=== PATIENT | female | born 1935 | race Caucasian/White ===

== ENCOUNTER 2021-09-11 18:25 | Inpatient (IN) | payer OTHER, MEDICARE ==
[2021-09-11 18:38] VITALS: BMI 21.1
[2021-09-11] MEDS ORDERED: METOCLOPRAMIDE HCL INJECTION 10 MG/2 ML VIAL IVPUSH ONE (18:41)
[2021-09-11] MEDS ORDERED: ACETAMINOPHEN 1000 MG/100 ML BAG IVPB ONE (18:41)
[2021-09-11] MEDS ORDERED: ACETAMINOPHEN INJECTION 100 ML IVPB ONE (18:43)
[2021-09-11 19:00] LABS: BASO % 0.6 % (0-2.0); EOS % 0.8 % (0-4.5); HEMOGLOBIN 13.6 GM/dL (10.7-15.3); LYMPH % 33.7 % (8-40); MCH 30.5 pg (25.7-33.7); MCHC 33.2 g/dl (32.0-36.0); MEAN CELL VOLUME 91.9 fl (80-96); MEAN PLT VOLUME 7.9 fl (7.5-11.1); MONO % 10.5 % (3.8-10.2); NEUT % 54.4 % (42.8-82.8); PLATELET COUNT 281 10^3/uL (134-434); RBC 4.46 M/mm3 (3.60-5.2); RDW 14.6 % (11.6-15.6); WHITE BLOOD COUNT 7.1 K/mm3 (4.0-10.0)
[2021-09-11 19:06] LABS: INR 1.01 (0.83-1.09); PROTHROMBIN TIME (PATIENT) 11.3 SEC (9.7-13.0)
[2021-09-11 19:08] LABS: ACTIVATED PTT 34.9 SECONDS (25.2-36.5)
[2021-09-11 19:18] LABS: CHLORIDE 102 mmol/L (98-107); SODIUM 137 mmol/L (136-145)
[2021-09-11 19:21] LABS: ALBUMIN 3.8 g/dl (3.4-5.0); ANION GAP 10 MMOL/L (8-16); BLOOD UREA NITROGEN 16.8 mg/dL (7-18); CALCIUM 9.1 mg/dL (8.5-10.1); CO2 25 mmol/L (21-32); GLUCOSE,RANDOM 101 mg/dL (74-106)
[2021-09-11 19:24] LABS: CREATININE 0.8 mg/dL (0.55-1.3); SGOT/AST 31 U/L (15-37); SGPT/ALT 27 U/L (13-61)
[2021-09-11 19:26] LABS: BILIRUBIN,TOTAL 0.4 mg/dL (0.2-1); TOT PROT 7.4 g/dl (6.4-8.2)
[2021-09-11 19:27] LABS: ALK PHOS 91 U/L (45-117)
[2021-09-11] MEDS ORDERED: METOCLOPRAMIDE HCL INJECTION 10 MG/2 ML VIAL ONE (20:00)
[2021-09-11 20:56] LABS: URINE APPEARANCE CLEAR; URINE BILIRUBIN NEGATIVE (NEGATIVE); URINE COLOR YELLOW; URINE GLUCOSE (UA) NEGATIVE (NEGATIVE); URINE KETONE NEGATIVE (NEGATIVE); URINE LEUK ESTERASE NEGATIVE (NEGATIVE); URINE NITRITE NEGATIVE (NEGATIVE); URINE PROTEIN NEGATIVE (NEGATIVE); URINE UROBILINOGEN 0.2 mg/dL (0.2-1.0)
[2021-09-11] MEDS ORDERED: SODIUM CHLORIDE 1,000 ML IV SCH (22:15)
[2021-09-12] MEDS: LEVOTHYROXINE NA 50 MCG TABLET (FP) PO SCH (06:00)
[2021-09-12 09:20] LABS: BASO % 0.5 % (0-2.0); EOS % 0.5 % (0-4.5); HEMOGLOBIN 12.3 GM/dL (10.7-15.3); LYMPH % 22.7 % (8-40); MCH 30.8 pg (25.7-33.7); MCHC 33.2 g/dl (32.0-36.0); MEAN CELL VOLUME 92.8 fl (80-96); MEAN PLT VOLUME 8.4 fl (7.5-11.1); NEUT % 66.3 % (42.8-82.8); PLATELET COUNT 277 10^3/uL (134-434); RBC 3.99 M/mm3 (3.60-5.2); RDW 14.4 % (11.6-15.6)
[2021-09-12] MEDS: amLODIPine BESYLATE 10 MG TABLET (FP) PO SCH (09:47)
[2021-09-12] MEDS: METOCLOPRAMIDE HCL INJECTION 10 MG/2 ML VIAL IVPUSH PRN ×2 (09:47→17:25)
[2021-09-12 09:49] LABS: ALBUMIN 3.2 g/dl (3.4-5.0); CALCIUM 8.9 mg/dL (8.5-10.1)
[2021-09-12 09:53] LABS: BLOOD UREA NITROGEN 11.3 mg/dL (7-18)
[2021-09-12 09:54] LABS: MAGNESIUM 2.1 mg/dL (1.8-2.4)
[2021-09-12 09:55] LABS: CREATININE 0.5 mg/dL (0.55-1.3); PHOSPHOROUS 3.1 mg/dL (2.5-4.9)
[2021-09-12 09:57] LABS: BILIRUBIN,TOTAL 0.7 mg/dL (0.2-1)
[2021-09-12 10:02] LABS: TOT PROT 6.3 g/dl (6.4-8.2)
[2021-09-12] MEDS: RAMIPRIL 5 MG CAPSULE PO SCH (10:54)
[2021-09-12] MEDS ORDERED: MECLIZINE HCL 12.5 MG TABLET PO ONE (19:04)
[2021-09-12] MEDS ORDERED: MECLIZINE HCL 25 MG TABLET (FP) PO ONE (19:15)
[2021-09-12] MEDS: ACETAMINOPHEN 325 MG TABLET (FP) PO PRN (20:25)
[2021-09-13] MEDS ORDERED: morphine CARPU-JECT 2 MG/1 ML DISP.SYRIN IVPUSH ONE (02:22)
[2021-09-13] MEDS: LEVOTHYROXINE NA 50 MCG TABLET (FP) PO SCH (06:18)
[2021-09-13] MEDS: ACETAMINOPHEN 325 MG TABLET (FP) PO PRN (09:51)
[2021-09-13] MEDS: amLODIPine BESYLATE 10 MG TABLET (FP) PO SCH (09:51)
[2021-09-13] MEDS: RAMIPRIL 5 MG CAPSULE PO SCH (09:51)
[2021-09-13 13:05] LABS: BASO % 0.4 % (0-2.0); EOS % 0.1 % (0-4.5); HEMOGLOBIN 13.9 GM/dL (10.7-15.3); LYMPH % 15.9 % (8-40); MCHC 33.9 g/dl (32.0-36.0); MEAN CELL VOLUME 91.6 fl (80-96); MEAN PLT VOLUME 8.7 fl (7.5-11.1); MONO % 14.5 % (3.8-10.2); NEUT % 69.1 % (42.8-82.8); PLATELET COUNT 319 10^3/uL (134-434); RBC 4.48 M/mm3 (3.60-5.2); RDW 14.6 % (11.6-15.6); WHITE BLOOD COUNT 8.8 K/mm3 (4.0-10.0)
[2021-09-13 13:23] LABS: CALCIUM 9.1 mg/dL (8.5-10.1)
[2021-09-13 13:24] LABS: ALBUMIN 3.2 g/dl (3.4-5.0); BLOOD UREA NITROGEN 8.7 mg/dL (7-18)
[2021-09-13 13:27] LABS: CREATININE 0.5 mg/dL (0.55-1.3)
[2021-09-13 13:28] LABS: TOT PROT 6.6 g/dl (6.4-8.2)
[2021-09-13 13:29] LABS: BILIRUBIN,TOTAL 0.8 mg/dL (0.2-1)
[2021-09-13] MEDS ORDERED: CYCLOBENZAPRINE HCL 5 MG TABLET PO PRN (13:43)
[2021-09-13] MEDS ORDERED: CYCLOBENZAPRINE HCL 5 MG TABLET PO ONE (17:06)
[2021-09-13] MEDS: ROSUVASTATIN CA 20 MG TABLET PO SCH (22:34)
[2021-09-14] MEDS: ACETAMINOPHEN 325 MG TABLET (FP) PO PRN (00:30)
[2021-09-14] MEDS: LEVOTHYROXINE NA 50 MCG TABLET (FP) PO SCH (06:48)
[2021-09-14 08:27] LABS: HEMATOCRIT 41.5 % (32.4-45.2); HEMOGLOBIN 13.9 GM/dL (10.7-15.3); MCHC 33.4 g/dl (32.0-36.0); MEAN CELL VOLUME 92.9 fl (80-96); MEAN PLT VOLUME 8.1 fl (7.5-11.1); PLATELET COUNT 274 10^3/uL (134-434); RBC 4.47 M/mm3 (3.60-5.2); RDW 14.6 % (11.6-15.6); WHITE BLOOD COUNT 8.2 K/mm3 (4.0-10.0)
[2021-09-14] MEDS ORDERED: PT OWN MED DRAWER 7, Y5N ONE (09:18)
[2021-09-14] MEDS: RAMIPRIL 5 MG CAPSULE PO SCH (09:29)
[2021-09-14] MEDS: EZETIMIBE 10 MG TABLET (FP) PO SCH (09:29)
[2021-09-14] MEDS: amLODIPine BESYLATE 10 MG TABLET (FP) PO SCH (09:29)
[2021-09-14 09:48] LABS: ALBUMIN 2.8 g/dl (3.4-5.0); BILIRUBIN,TOTAL 0.8 mg/dL (0.2-1); BLOOD UREA NITROGEN 8.9 mg/dL (7-18); CALCIUM 8.7 mg/dL (8.5-10.1); CREATININE 0.5 mg/dL (0.55-1.3); TOT PROT 6.2 g/dl (6.4-8.2)
[2021-09-14] MEDS: LIDOCAINE 5% TOPICAL PATCH TP SCH (09:55)
[2021-09-14] MEDS: ASPIRIN COATED 81 MG TABLET.EC PO SCH (09:55)
[2021-09-14] MEDS: TIOTROPIUM BROMIDE 2.5 MCG (SPIRIVA) RESPIMAT INHALER IH SCH (09:56)
[2021-09-14] MEDS ORDERED: PATIENT'S OWN MEDICATION (NON-FORMULARY) (Vit A/Vit C/Vit E/Zinc/Copper [Preservision Ared PO SCH (10:00)
[2021-09-14] MEDS: ROSUVASTATIN CA 20 MG TABLET PO SCH (21:46)
[2021-09-14] MEDS: LIDOCAINE PATCH REMOVAL MC SCH (22:00)
[2021-09-15] MEDS: ACETAMINOPHEN 325 MG TABLET (FP) PO PRN (05:48)
[2021-09-15] MEDS: LEVOTHYROXINE NA 50 MCG TABLET (FP) PO SCH (06:55)
[2021-09-15] MEDS: LIDOCAINE 5% TOPICAL PATCH TP SCH (09:05)
[2021-09-15] MEDS: THIAMINE HCL 100 MG TABLET (FP) PO SCH (09:05)
[2021-09-15] MEDS: ASPIRIN COATED 81 MG TABLET.EC PO SCH (09:06)
[2021-09-15] MEDS: EZETIMIBE 10 MG TABLET (FP) PO SCH (09:07)
[2021-09-15] MEDS: amLODIPine BESYLATE 10 MG TABLET (FP) PO SCH (09:07)
[2021-09-15] MEDS: FOLIC ACID 1 MG TABLET (FP) PO SCH (09:07)
[2021-09-15] MEDS: RAMIPRIL 5 MG CAPSULE PO SCH (09:07)
[2021-09-15] MEDS: TIOTROPIUM BROMIDE 2.5 MCG (SPIRIVA) RESPIMAT INHALER IH SCH (09:08)
[2021-09-15] MEDS ORDERED: RAMIPRIL 5 MG CAPSULE PO SCH (11:07)
[2021-09-15] MEDS ORDERED: MECLIZINE HCL 12.5 MG TABLET PO PRN (16:35)
[2021-09-15] MEDS ORDERED: MELATONIN 5 MG TABLETS PO PRN (16:36)
[2021-09-15] MEDS ORDERED: CYCLOBENZAPRINE HCL 5 MG TABLET PO SCH (22:00)
[2021-09-15] MEDS: ROSUVASTATIN CA 20 MG TABLET PO SCH (22:03)
[2021-09-15] MEDS: LIDOCAINE PATCH REMOVAL MC SCH (22:04)
[2021-09-15] MEDS ORDERED: PT OWN MED DRAWER 7, Y5N ONE (22:11)
[2021-09-16] MEDS: LEVOTHYROXINE NA 50 MCG TABLET (FP) PO SCH (06:10)
[2021-09-16 08:54] LABS: HEMATOCRIT 37.5 % (32.4-45.2); HEMOGLOBIN 12.8 GM/dL (10.7-15.3); MCH 31.2 pg (25.7-33.7); MCHC 34.2 g/dl (32.0-36.0); MEAN CELL VOLUME 91.4 fl (80-96); PLATELET COUNT 281 10^3/uL (134-434); WHITE BLOOD COUNT 9.3 K/mm3 (4.0-10.0)
[2021-09-16] MEDS ORDERED: PT OWN MED DRAWER 7, Y5N ONE (09:21)
[2021-09-16] MEDS: EZETIMIBE 10 MG TABLET (FP) PO SCH (09:25)
[2021-09-16 09:26] LABS: ALBUMIN 2.8 g/dl (3.4-5.0); CALCIUM 8.6 mg/dL (8.5-10.1); MAGNESIUM 2.2 mg/dL (1.8-2.4)
[2021-09-16] MEDS: LIDOCAINE 5% TOPICAL PATCH TP SCH (09:26)
[2021-09-16 09:27] LABS: PHOSPHOROUS 3.5 mg/dL (2.5-4.9)
[2021-09-16] MEDS: THIAMINE HCL 100 MG TABLET (FP) PO SCH (09:27)
[2021-09-16] MEDS: FOLIC ACID 1 MG TABLET (FP) PO SCH (09:27)
[2021-09-16 09:28] LABS: BILIRUBIN,TOTAL 0.7 mg/dL (0.2-1); TOT PROT 6.1 g/dl (6.4-8.2)
[2021-09-16] MEDS: amLODIPine BESYLATE 10 MG TABLET (FP) PO SCH (09:28)
[2021-09-16] MEDS: ACETAMINOPHEN 325 MG TABLET (FP) PO PRN (09:28)
[2021-09-16] MEDS: ASPIRIN COATED 81 MG TABLET.EC PO SCH (09:28)
[2021-09-16 09:29] LABS: CREATININE 0.5 mg/dL (0.55-1.3)
[2021-09-16] MEDS: TIOTROPIUM BROMIDE 2.5 MCG (SPIRIVA) RESPIMAT INHALER IH SCH (10:54)
[2021-09-16 14:15] VITALS: BP 138/67; PULSE 85; TEMP 98
== END 2021-09-16 18:10 | DRG 103 ==
LOC: JER 18:25 → JERBED 21:00 → INTOOBSV 21:00 → J7W 09-12 03:21 → OBSVTOIN 09-14 16:24
PROVIDERS: ADMIT Hospitalist; ATTEND Internal Medicine
DX: F07.81 Postconcussional syndrome (principal); S00.03XA Contusion of scalp, initial encounter; M50.30 Other cervical disc degeneration, unspecified cervical region; F10.920 Alcohol use, unspecified with intoxication, uncomplicated; I10 Essential (primary) hypertension; E03.9 Hypothyroidism, unspecified; E78.5 Hyperlipidemia, unspecified; I25.10 Atherosclerotic heart disease of native coronary artery without angina pectoris; M62.838 Other muscle spasm; R32 Unspecified urinary incontinence; G93.89 Other specified disorders of brain; W01.0XXA Fall on same level from slipping, tripping and stumbling without subsequent striking against object, initial encounter; Y92.098 Other place in other non-institutional residence as the place of occurrence of the external cause
CPT/HCPCS: 36415; 70450-TC; 70551-TC; 71045-TC-FY; 72125-TC; 72141-TC; 80053; 81003; 82550; 82962; 83690; 83735; 84100; 84484; 85025; 85027; 85610; 85730; 87086; 93005; 93010; 97116-GP; 97161-GP; 99285-25; C9803; G0378; J0131; U0003; U0005

== ENCOUNTER 2021-11-21 12:00 | Emergency (ER) | payer OTHER, MEDICARE ==
[2021-11-21 12:23] VITALS: BP 136/70; PULSE 53; TEMP 97.9; BMI 20.5
[2021-11-21] MEDS ORDERED: LIDOCAINE 5% TOPICAL PATCH TP ONE (12:47)
[2021-11-21] MEDS ORDERED: LIDOCAINE 5% TOPICAL PATCH ONE (12:50)
[2021-11-21 14:14] LABS: EPITHELIAL CELLS FEW /hpf
[2021-11-21] MEDS ORDERED: LIDOCAINE PATCH REMOVAL MC SCH (22:00)
== END 2021-11-21 14:36 | disposition home or self-care (01) ==
LOC: FER 12:00
DX: S22.41XA Multiple fractures of ribs, right side, initial encounter for closed fracture (principal); W19.XXXA Unspecified fall, initial encounter
CPT/HCPCS: 71250-TC; 81003; 81015; 99284-25

== ENCOUNTER 2023-05-15 12:02 | Emergency (ER) | payer OTHER, MEDICARE ==
[2023-05-15 12:21] VITALS: BP 156/80; PULSE 76; RESP 18; TEMP 97.7; BMI 21.1
[2023-05-15 13:12] LABS: EPITHELIAL CELLS FEW /hpf
== END 2023-05-15 12:45 | disposition home or self-care (01) ==
LOC: FER 12:02
DX: R30.0 Dysuria (principal); R31.9 Hematuria, unspecified; N39.0 Urinary tract infection, site not specified
CPT/HCPCS: 81003; 81015; 87086; 99283-25